=== PATIENT | female | born 1985 | race American Indian/Alaskan Native ===

== ENCOUNTER 2017-11-30 07:27 | Inpatient (IN) | payer OTHER ==
[2017-11-30] VITALS (19 sets, daily range): BP systolic 94–112; BP diastolic 53–73
[~2017-11-30] VITALS: Ht 160 cm; Wt 66.8 kg
[2017-11-30] MEDS ORDERED: PRENATAL TABLE1 EAC3 PO (08:17)
[2017-11-30] MEDS ORDERED: TUMS X-STR300 MG PO (08:18)
[2017-11-30] MEDS ORDERED: TYLENOL PM EX-1 EACH PO (08:18)
[2017-11-30] MEDS ORDERED: ZANTAC150 MG PO (08:19)
[2017-11-30 09:43] LABS: BASOPHIL (%) 0.2 % (0-1); EOSINOPHIL (%) 0.5 % (0-5); EOSINOPHIL COUNT 0.1 K/uL (0-0.3); HEMATOCRIT 34.8 % (36.0-46.0); HEMOGLOBIN 11.4 G/DL (11.9-15.5); IMMATURE GRANULOCYTE (%) 0.4 % (0.0-0.7); LYMPHOCYTE (%) 16.8 % (15-42); LYMPHOCYTE COUNT 1.6 K/uL (1.0-2.8); MCH 27.7 PG (29.0-34.0); MCHC 32.8 G/DL (30.0-36.0); MCV 84.5 FL (83-99); MONOCYTE (%) 5.3 % (3-12); MONOCYTE COUNT 0.5 K/uL (0-0.8); NEUTROPHIL (%) 76.8 % (45-76); NEUTROPHIL COUNT 7.3 K/uL (1.8-6.4); PLATELET COUNT 194 K/uL (156-360); RBC DIS.WIDTH-CV 13.7 % (11.8-14.6); RBC DIS.WIDTH-SD 42.1 % (39-53); RED BLOOD COUNT 4.12 M/uL (3.80-5.20); WHITE BLOOD COUNT 9.5 K/uL (4.1-10.2)
[2017-11-30 10:57] LABS: AMPHETAMINE NEGATIVE (500 ng/mL); BARBITURATES NEGATIVE (200 ng/mL); BENZODIAZEPINES NEGATIVE (150 ng/mL); BUPRENORPHINE NEGATIVE (10 ng/mL); COCAINE NEGATIVE (150 ng/mL); METHADONE NEGATIVE (200 ng/mL); METHAMPHETAMINE NEGATIVE (500 ng/mL); OPIATES (MORPHINE) NEGATIVE (100 ng/mL); OXYCODONE NEGATIVE (100 ng/mL); PHENCYCLIDINE NEGATIVE (25 ng/mL); PROPOXYPHENE NEGATIVE (300 ng/mL); THC CANNABINOIDS NEGATIVE (50 ng/mL); TRICYCLIC ANTIDEPRESSANTS NEGATIVE (300 ng/mL)
[2017-12-01] VITALS (41 sets, daily range): BP systolic 88–137; BP diastolic 50–73
[2017-12-01] MEDS ORDERED: IBUPROFEN800 MG PO (18:27)
[2017-12-02 07:10] VITALS: BP 100/56
[2017-12-02 15:09] VITALS: BP 97/54
[2017-12-02 22:43] VITALS: BP 108/58
[2017-12-03 07:10] VITALS: BP 106/71
== END 2017-12-03 11:45 | disposition home or self-care (01) | DRG 775 ==
LOC: LDRP-OP 07:27 → 2WEST 07:29 → LDRP-OP 11:46 → 2WEST 12-01 17:49 → LDRP-OP 12-29 10:19
PROVIDERS: Advanced Practice Midwife
PROC: 3E0P7VZ Introduction of Hormone into Female Reproductive, Via Natural or Artificial Opening (ICD-10-PCS; principal; 2017-11-30)
PROC: 10907ZC Drainage of Amniotic Fluid, Therapeutic from Products of Conception, Via Natural or Artificial Opening (ICD-10-PCS; 2017-12-01)
PROC: 3E0R3BZ Introduction of Anesthetic Agent into Spinal Canal, Percutaneous Approach (ICD-10-PCS; 2017-12-01)
PROC: 0KQM0ZZ Repair Perineum Muscle, Open Approach (ICD-10-PCS; 2017-12-01)
PROC: 10E0XZZ Delivery of Products of Conception, External Approach (ICD-10-PCS; 2017-12-01)
PROC: 00HU33Z Insertion of Infusion Device into Spinal Canal, Percutaneous Approach (ICD-10-PCS; 2017-12-01)
DX: O70.1 Second degree perineal laceration during delivery (principal); O69.1XX0 Labor and delivery complicated by cord around neck, with compression, not applicable or unspecified; Z3A.40 40 weeks gestation of pregnancy; Z37.0 Single live birth; R12 Heartburn
CPT/HCPCS: 85025; C1755; G0378; J3010; J7120; S0028

== ENCOUNTER → 2017-12-25 | Outpatient (CLI) | payer OTHER ==
[~2017-12-25] MED LIST: IBUPROFEN800 MG PO; PRENATAL TABLE1 EAC3 PO; TUMS X-STR300 MG PO; TYLENOL PM EX-1 EACH PO; ZANTAC150 MG PO
== END | disposition home or self-care (01) ==
LOC: LAC 10:34
DX: Z39.1 Encounter for care and examination of lactating mother (principal); O92.4 Hypogalactia; O92.13 Cracked nipple associated with lactation
CPT/HCPCS: G0463